=== PATIENT | female | born 1990 | race Caucasian/White ===

== ENCOUNTER 2016-03-07 05:37 | Inpatient (IN) | payer MEDICAID ==
[2016-03-01 12:00] LABS: ABSOLUTE EOSINOPHILS # (AUTO) 0.1 10^3/uL (0.0-0.6); ABSOLUTE LYMPHOCYTES (AUTO) 1.6 10^3/uL (0.5-4.7); ABSOLUTE MONOCYTES (AUTO) 0.6 10^3/uL (0.1-1.4); ABSOLUTE NEUT (AUTO) 7.7 10^3/uL (1.7-8.2); BASOPHILS % (AUTO) 0.4 % (0-2); EOSINOPHILS % (AUTO) 0.6 % (0-6); HEMATOCRIT 32.2 % (36.0-47.0); HEMOGLOBIN 10.4 g/dL (12.0-15.5); LYMPHOCYTES % (AUTO) 15.9 % (13-45); MEAN CORPUSCULAR HGB CONC 32.3 g/dL (32.0-36.0); MEAN CORPUSCULAR VOLUME 74 fl (80-97); MONOCYTES % (AUTO) 6.1 % (3-13); RED BLOOD COUNT 4.34 10^6/uL (3.72-5.28); RED CELL DISTRIBUTION WIDTH 16.1 % (11.5-14.0)
[2016-03-01 12:08] LABS: APPEARANCE,URINE SLIGHTLY-CLOUDY; BILIRUBIN,URINE NEGATIVE (NEGATIVE); GLUCOSE, URINE NEGATIVE (NEGATIVE); KETONES,URINE NEGATIVE (NEGATIVE); LEUKOCYTE ESTERASE,URINE SMALL (NEGATIVE); NITRITE,URINE NEGATIVE (NEGATIVE); PROTEIN,URINE NEGATIVE (NEGATIVE); URINE SPECIFIC GRAVITY 1.026; UROBILINOGEN,URINE NEGATIVE mg/dL (<2.0)
[2016-03-01 12:25] LABS: URINE BARBITURATES SCREEN NEGATIVE; URINE METHADONE SCREEN NEGATIVE; URINE PHENCYCLIDINE SCREEN NEGATIVE
[~2016-03-07 05:37] MED LIST: CEFAZOLIN SODIUM 1 GM in DEXTROSE 5%-WATER 50 ML IV PRN; LACTATED RINGERS 1000 ML IV PRN; LIDOCAINE 0.5% INJ-PF (5 MG/ML) 50 ML SDV SUBCUT PRN; RINGERS SOLUTION,LACTATED 1,000 ML IV PRN
[2016-03-07] MEDS ORDERED: CEFAZOLIN INJ 1 GM VIAL ONE (06:28)
[2016-03-07] MEDS ORDERED: FENTANYL CITRATE INJ/PF 100 MCG/2 ML AMPUL ONE (09:23)
[2016-03-07] MEDS ORDERED: METHYLERGONOVINE MALEATE INJ/PF 0.2 MG/1 ML AMPULE ONE (09:23)
[2016-03-07] MEDS ORDERED: OXYTOCIN/NORMAL SALINE 20 UNIT/1,000 ML RTUINJ ONE ×2 (09:23→11:08)
[2016-03-07] MEDS ORDERED: ACETAMINOPHEN 100 ML IV ONE (09:23)
[2016-03-07] MEDS ORDERED: MIDAZOLAM 2 MG/2 ML INJ ONE (09:23)
[2016-03-07] MEDS ORDERED: OXYTOCIN 10 UNIT/ML VIAL ONE (09:23)
[2016-03-07] MEDS ORDERED: KETAMINE HCL INJ 500 MG/10 ML VIAL ONE (09:58)
[2016-03-07] MEDS ORDERED: ONDANSETRON HCL INJ/PF 4 MG/2 ML SDV IV PRN (10:26)
[2016-03-07] MEDS ORDERED: PROMETHAZINE HCL INJ 25 MG/1 ML VIAL IV PRN ×2 (10:26)
[2016-03-07] MEDS ORDERED: OXYCODONE-ACETAMINOPHEN 5-325 MG TABLET PO PRN ×3 (10:26→13:27)
[2016-03-07] MEDS ORDERED: DIPHENHYDRAMINE HCL 50 MG/ML VIAL IV PRN (10:26)
[2016-03-07] MEDS ORDERED: MEPERIDINE HCL/PF INJ 25 MG/1 ML DISP.SYRIN IV PRN (10:26)
[2016-03-07] MEDS ORDERED: FENTANYL CITRATE INJ/PF 100 MCG/2 ML AMPUL IV PRN ×3 (10:26)
[2016-03-07] MEDS ORDERED: MORPHINE SULFATE 10 MG/ML INJ IV PRN (10:26)
--- NOTE | 2016-03-07 11:03 | OPERATIVE REPORT E ---
Operative Report NAME: NHUNG JAQUEZ : 1990 AGE: 26Y DATE OF SURGERY: 03/07/2016 ROOM: 225 PREOPERATIVE DIAGNOSES: 1. A 39-week intrauterine . 2. History of section x2 for repeat. POSTOPERATIVE DIAGNOSES: 1. A 39-week intrauterine . 2. History of section x2 for repeat. PROCEDURE: Repeat low transverse section. SURGEON: Mumtaz Viera D.O. CORPORATE STRATEGY ASSOCIATE: None. ANESTHESIA: Spine. COMPLICATIONS: None. ESTIMATED BLOOD LOSS: 600 mL. PATHOLOGY: None. FINDINGS: 1. Viable male at 10:11 a.m. on 03/07/2016. Apgars 8 at 1 and 9 at 5. Weight pending this dictation. 2. Normal appearing bilateral fallopian tubes and ovaries. PROCEDURE: The patient was taken to the operating room where she was spinal anesthesia was administered. Once this was done, she was placed in a dorsal supine position with a leftward tilt upon the operating room table. She was then prepped and draped in a normal sterile fashion. A scalpel was then used to make a Pfannenstiel skin incision. The skin incision was carried down through the subcutaneous tissues to the layer of the fascia. Fascia was incised midline. Fascial incision was then extended bilaterally using Bovie cautery. The superior fascial edge was grasped with Chin clamps, elevated, and the rectus muscle was dissected off sharply and bluntly. Attention was then turned to the inferior fascial edge, which was grasped with Chin clamps, elevated, and the rectus muscle was dissected off sharply and bluntly. Rectus muscles were then in the midline, peritoneum identified and entered bluntly with the surgeon's hands. A bladder blade was inserted. A scalpel was then used to make a low transverse hysterotomy incision. The infant was found to be in the cephalic position and delivered through this incision without difficulty and atraumatically. The nose and mouth were suctioned. The cord was clamped and cut and the infant was handed off to the waiting nurses. Cord blood was obtained. The placenta was then manually removed from the uterus. The uterus was exteriorized and cleared of all clots and debris. The hysterotomy incision was then reapproximated using 2 layers of 1-0 Vicryl in a running, locking fashion. Following closure of the second layer, excellent hemostasis was noted. The uterus was then returned to the abdomen. Again, the hysterotomy incision was reinspected and found to have excellent hemostasis. Rectus muscles were then reapproximated using 1-0 Vicryl interrupted sutures. The fascia was then closed using 1-0 Vicryl in a running, non-locking fashion. The subcutaneous space was made hemostatic using Bovie cautery. The skin was then closed with absorbable eleni, covered with an OpSite and then with a pressure dressing. At this point in time, the procedure was terminated. All sponge, lap, and needle counts were correct x2. The patient tolerated the procedure well. The patient was taken to the recovery room in stable condition. DICTATING PHYSICIAN: Mumtaz Viera DO [id number] PHY#: [id number] ID: [id number] JOB#: [id number] ACCT: [id number] cc:Mumtaz Viera D.O. >
[2016-03-07] MEDS ORDERED: HYDROMORPHONE HCL INJ/PF 2 MG/ML AMPULE IV PRN (13:20)
[2016-03-07] MEDS ORDERED: SIMETHICONE 80 MG TAB.CHEW PO PRN (13:28)
[2016-03-07] MEDS ORDERED: ACETAMINOPHEN 325 MG TABLET PO PRN (13:28)
[2016-03-07] MEDS ORDERED: MEASLES,MUMPS&RUBELLA VACC/PF 0.5 ML VIAL SUBCUT PRN (13:29)
[2016-03-07] MEDS ORDERED: TETANUS/DIPHTHERIA TOX-ADULT 0.5 ML SYR (>=7YO) IM PRN (13:30)
[2016-03-07] MEDS ORDERED: KETOROLAC TROMETHAMINE INJ/PF 30 MG/1 ML SDV IV SCH (13:30)
[2016-03-07] MEDS: KETOROLAC TROMETHAMINE INJ/PF 30 MG/1 ML SDV IV SCH (14:15)
[2016-03-07] MEDS ORDERED: ONDANSETRON HCL INJ/PF 4 MG/2 ML SDV ONE (14:22)
[2016-03-07] MEDS ORDERED: DIPH/PERTUSS(ACELL)/TETANUS VAC/PF 0.5 ML SYR (>=10YO) IM PRN (15:28)
[2016-03-07] MEDS ORDERED: KETOROLAC TROMETHAMINE INJ/PF 30 MG/1 ML SDV ONE (16:34)
[2016-03-07] MEDS ORDERED: KETOROLAC TROMETHAMINE INJ/PF 30 MG/1 ML SDV IV ONE (16:35)
[2016-03-07] MEDS: DOCUSATE SODIUM 100 MG CAPSULE PO SCH (17:33)
[2016-03-07] MEDS: OXYCODONE-ACETAMINOPHEN 5-325 MG TABLET PO PRN (19:56)
[2016-03-08] MEDS: KETOROLAC TROMETHAMINE INJ/PF 30 MG/1 ML SDV IV SCH ×2 (00:11→07:30)
[2016-03-08] MEDS: OXYCODONE-ACETAMINOPHEN 5-325 MG TABLET PO PRN ×5 (02:38→21:52)
[2016-03-08 08:06] LABS: HEMATOCRIT 28.8 % (36.0-47.0); HGB HCT DIFFERENCE -1.8; MEAN CORPUSCULAR HEMOGLOBIN 23.4 pg (27.0-33.4); MEAN CORPUSCULAR HGB CONC 31.4 g/dL (32.0-36.0); MEAN CORPUSCULAR VOLUME 75 fl (80-97); RED BLOOD COUNT 3.87 10^6/uL (3.72-5.28); RED CELL DISTRIBUTION WIDTH 16.4 % (11.5-14.0); WHITE BLOOD COUNT 10.7 10^3/uL (4.0-10.5)
[2016-03-08] MEDS: DOCUSATE SODIUM 100 MG CAPSULE PO SCH ×2 (09:51→17:27)
[2016-03-08] MEDS: PRENATAL VITAMIN W-O CA NO5/FE FUMARATE/FA CAPSULE PO SCH (09:52)
--- NOTE | 2016-03-08 16:03 | PDOC PROGRESS REPORT ---
Subjective-OB Subjective: Post Delivery Day:1 26 year old s/p repeat . , ambulating and voiding without difficulty. Denies any needs at this time. Physical Exam (OB) Vital Signs: Temp Pulse Resp BP Pulse Ox 97.7 F 51 L 19 115/64 97 03/08/16 09:21 03/08/16 09:21 03/08/16 09:21 03/08/16 09:21 03/08/16 09:21 Intake & Output 03/07/16 03/08/16 03/09/16 06:59 06:59 06:59 Intake Total 1815 Output Total 2550 Balance -735 Weight 106.594 kg - General General Appearance: Appears well In distress: None - Dressing Removed: No Incision: Dressing Closure Type: metapor - Lochia Lochia Amount: Scant < 10 ml Lochia Color: Rubra/Red - Abdomen Description: Soft, Round Hernia Present: No Fundal Description: Firm, Midline Fundal Height: u/u - u/2 - Respiratory Respiratory Status: No respiratory distress - Extremities Upper extremity: Normal inspection Lower extremities: Normal inspection - Neurological Orientation: AAOx4 - Psychological Associated symptoms: Normal affect - FOB and two other children in room. Bonding well with baby., Normal mood - bonding well with baby Objective-Diagnostic Laboratory: 03/08/16 07:34 03/08/16 07:34 WBC 10.7 H RBC 3.87 Hgb 9.0 L Hct 28.8 L MCV 75 L MCH 23.4 L MCHC 31.4 L RDW 16.4 H Plt Count 369 Assessment and Plan(PN) - Assessment and Plan (1) Status post repeat low transverse section Is this a current diagnosis for this admission?: YesPlan: continue stay - Time Spent with Patient Time with patient: 15-25 minutes Medications reviewed and adjusted accordingly: Yes - Disposition Anticipated Discharge: Home Within: within 24 hours
[2016-03-08] MEDS: IBUPROFEN 800 MG TABLET PO PRN (17:30)
[2016-03-09] MEDS: OXYCODONE-ACETAMINOPHEN 5-325 MG TABLET PO PRN ×2 (02:31→13:08)
[2016-03-09] MEDS: IBUPROFEN 800 MG TABLET PO PRN ×2 (05:06→15:56)
[2016-03-09 08:10] VITALS: BP 106/66
[2016-03-09] MEDS: PRENATAL VITAMIN W-O CA NO5/FE FUMARATE/FA CAPSULE PO SCH (10:30)
[2016-03-09] MEDS: DOCUSATE SODIUM 100 MG CAPSULE PO SCH (10:30)
--- NOTE | 2016-03-09 11:40 | PDOC DISCHARGE SUMMARY ---
Final Diagnosis Discharge Date: 03/09/16 - Final Diagnosis (1) Status post repeat low transverse section Is this a current diagnosis for this admission?: Yes Discharge Data - Discharge Medication Home Medications: Pnv95/Ferrous Fumarate/FA [ Caplet] 1 tab PO DAILY 01/22/16 Ferrous Sulfate [Feosol] 1 ea PO DAILY 03/07/16 Reason(s) for Admission: Ceasarean Section-Repeat Procedures: None Intrapartum Procedure(s): : Low Cervical, Transverse - Diagnosis Test Laboratory: Temp Pulse Resp BP Pulse Ox 98.1 F 79 18 107/66 97 03/09/16 08:05 03/09/16 08:05 03/09/16 08:05 03/09/16 08:05 03/09/16 08:05 03/01/16 03/01/16 03/08/16 10:55 11:24 07:34 RBC 4.34 3.87 Hgb 10.4 L 9.0 L Hct 32.2 L 28.8 L Urine Opiates Screen NEGATIVE - Discharge information/Instructions Discharge Activity: Balance Activity w/Rest, No Driving, No Lifting Over 10 Pounds, No Lifting/Push/Pulling, Pelvic Rest, No tub bath Discharge Diet: Regular Disposition: HOME, SELF-CARE Follow up with: [facility] in: 5, Days
== END 2016-03-09 17:30 | disposition home or self-care (01) | DRG 766 ==
LOC: 2S 05:37
PROVIDERS: ADMIT Obstetrics & Gynecology; ATTEND Obstetrics & Gynecology
PROC: 10D00Z1 Extraction of Products of Conception, Low, Open Approach (ICD-10-PCS; principal; 2016-03-07 09:00)
DX: O34.211 Maternal care for low transverse scar from previous cesarean delivery (principal); N85.8 Other specified noninflammatory disorders of uterus; O75.82 Onset (spontaneous) of labor after 37 completed weeks of gestation but before 39 completed weeks gestation, with delivery by (planned) cesarean section; Z3A.39 39 weeks gestation of pregnancy; Z37.0 Single live birth; O09.33 Supervision of pregnancy with insufficient antenatal care, third trimester
CPT/HCPCS: 1961; 36415; 59025; 80307; 81001; 85025; 85027; 86850; 86900; 86901; 94799; J0131; J0690; J1170; J1885; J2210; J2250; J2405; J2590; J3010; J3490; J7120

== ENCOUNTER 2016-03-11 15:25 | Emergency (ER) | payer MEDICAID ==
--- NOTE | 2016-03-11 15:34 | ER Document Report ---
ED Medical Screen (RME) - General Stated Complaint: POST SURGICAL COMPLICATION Time seen by provider: 15:34 Mode of Arrival: Ambulatory Information source: Patient Notes: 26-year-old female with a C back on 03-07-16 at 39 weeks. Last night. The incisional pain is unusual post for her. She also is complaining of brown discharge and bleeding from the incision. No fever. TRAVEL OUTSIDE OF THE [place] IN LAST 30 DAYS: No - Related Data Allergies/Adverse Reactions: amoxicillin Allergy (Intermediate, Verified 12/06/15 12:29) Generalized rash clavulanic acid [From Augmentin] Allergy (Intermediate, Verified 12/06/15 12:29) Generalized rash nitrofurantoin [From Macrobid] Allergy (Intermediate, Verified 12/06/15 12:29) Generalized rash Past Medical History - Past Medical History Cardiac Medical History: Denies: Hx Hypertension, Hx Pulmonary Embolism, Hx Heart Murmur Pulmonary Medical History: Reports: Hx Asthma Denies: Hx Sleep Apnea, Hx Tuberculosis Neurological Medical History: Denies: Hx Cerebrovascular Accident, Hx Seizures Endocrine Medical History: Denies: Hx Hyperthyroidism, Hx Hypothyroidism Renal/ Medical History: Reports: Hx Ovarian Cysts. Denies: Hx Kidney Stones, Hx Pelvic Inflammatory Disease Malignancy Medical History: Denies: Hx Breast Cancer, Hx Cervical Cancer, Hx Ovarian Cancer GI Medical History: Reports: Hx Gastroesophageal Reflux Disease - during . Denies: Hx Hiatal Hernia, Hx Ulcer Musculoskeltal Medical History: Denies Hx Fibromyalgia Psychiatric Medical History: Denies: Hx Bipolar Disorder, Hx Depression, Hx Post Traumatic Stress Disorder , Hx Schizophrenia Traumatic Medical History: Denies: Hx Fractures Infectious Medical History: Denies: Hx HIV Physical Exam - Vital signs Vitals: Temp Pulse Resp BP Pulse Ox 98.0 F 87 20 121/77 97 03/11/16 15:31 03/11/16 15:31 03/11/16 15:31 03/11/16 15:31 03/11/16 15:31 Course - Vital Signs Vital signs: Temp Pulse Resp BP Pulse Ox 98.0 F 87 20 121/77 97 03/11/16 15:31 03/11/16 15:31 03/11/16 15:31 03/11/16 15:31 03/11/16 15:31
[2016-03-11 16:27] LABS: ABSOLUTE BASOPHILS # (AUTO) 0.1 10^3/uL (0.0-0.2); ABSOLUTE EOSINOPHILS # (AUTO) 0.3 10^3/uL (0.0-0.6); ABSOLUTE LYMPHOCYTES (AUTO) 1.8 10^3/uL (0.5-4.7); ABSOLUTE MONOCYTES (AUTO) 0.6 10^3/uL (0.1-1.4); BASOPHILS % (AUTO) 0.6 % (0-2); EOSINOPHILS % (AUTO) 2.9 % (0-6); HEMATOCRIT 28.4 % (36.0-47.0); HEMOGLOBIN 9.2 g/dL (12.0-15.5); HGB HCT DIFFERENCE -0.8; MEAN CORPUSCULAR HEMOGLOBIN 23.6 pg (27.0-33.4); MEAN CORPUSCULAR HGB CONC 32.3 g/dL (32.0-36.0); MEAN CORPUSCULAR VOLUME 73 fl (80-97); MONOCYTES % (AUTO) 7.4 % (3-13); RED BLOOD COUNT 3.88 10^6/uL (3.72-5.28); RED CELL DISTRIBUTION WIDTH 16.3 % (11.5-14.0); SEGMENTED NEUTROPHILS % (AUTO) 68.1 % (42-78); WHITE BLOOD COUNT 8.8 10^3/uL (4.0-10.5)
--- NOTE | 2016-03-11 16:43 | ER Document Report ---
ED Wound - General Chief Complaint: Wound Recheck Stated Complaint: POST SURGICAL COMPLICATION Mode of Arrival: Ambulatory Notes: Patient is a 26-year-old female who is postop day 3 from an elective C- section. She comes emergency department today with concern for bleeding at her site as well as pain. Patient states that she has had 2 other C- sections prior to this and has never had such severe abdominal pain. She states that it is underneath her incision. Painful to deep palpation. There is difficult for her to lie flat. Described as a burning constant pain. She has been taking Motrin 800 mg 3 times a day and Percocet 1- 2 tablets every 4 hours when necessary. Patient states that she has 2 other children at home under the age of 2 and she hasn't been able to get a lot of sleep. Otherwise is a healthy female TRAVEL OUTSIDE OF THE [place] IN LAST 30 DAYS: No - Related Data Allergies/Adverse Reactions: amoxicillin Allergy (Intermediate, Verified 03/11/16 15:39) Generalized rash clavulanic acid [From Augmentin] Allergy (Intermediate, Verified 03/11/16 15:39) Generalized rash nitrofurantoin [From Macrobid] Allergy (Intermediate, Verified 03/11/16 15:39) Generalized rash Past Medical History - General Information source: Patient - Social History Smoking Status: Unknown if Ever Smoked Chew tobacco use (# tins/day): No Frequency of alcohol use: None Drug Abuse: None Family History: Reviewed & Not Pertinent Patient has suicidal ideation: No Patient has homicidal ideation: No - Past Medical History Cardiac Medical History: Denies: Hx Hypertension, Hx Pulmonary Embolism, Hx Heart Murmur Pulmonary Medical History: Reports: Hx Asthma Denies: Hx Sleep Apnea, Hx Tuberculosis Neurological Medical History: Denies: Hx Cerebrovascular Accident, Hx Seizures Endocrine Medical History: Denies: Hx Hyperthyroidism, Hx Hypothyroidism Renal/ Medical History: Reports: Hx Ovarian Cysts. Denies: Hx Kidney Stones, Hx Peritoneal Dialysis, Hx Pelvic Inflammatory Disease Malignancy Medical History: Denies: Hx Breast Cancer, Hx Cervical Cancer, Hx Ovarian Cancer GI Medical History: Reports: Hx Gastroesophageal Reflux Disease - during . Denies: Hx Hiatal Hernia, Hx Ulcer Musculoskeltal Medical History: Denies Hx Fibromyalgia Psychiatric Medical History: Denies: Hx Bipolar Disorder, Hx Depression, Hx Post Traumatic Stress Disorder , Hx Schizophrenia Traumatic Medical History: Denies: Hx Fractures Infectious Medical History: Denies: Hx HIV Review of Systems - Review of Systems Constitutional: No symptoms reported EENT: No symptoms reported Cardiovascular: No symptoms reported Respiratory: No symptoms reported Gastrointestinal: See HPI Genitourinary: No symptoms reported Female Genitourinary: No symptoms reported Musculoskeletal: No symptoms reported Skin: See HPI Neurological/Psychological: No symptoms reported Physical Exam - Vital signs Vitals: Temp Pulse Resp BP Pulse Ox 98.0 F 87 20 121/77 97 03/11/16 15:31 03/11/16 15:31 03/11/16 15:31 03/11/16 15:31 03/11/16 15:31 - Notes Notes: PHYSICAL EXAM GENERAL: Alert, interacts well. LUNGS: Clear to auscultation bilaterally, no wheezes, rales, or rhonchi. No respiratory distress. HEART: Regular rate and rhythm. No murmurs, gallops, or rubs. ABDOMEN: Soft, mildly distended, tender to superficial palpation over her c section incison. site is dry and intact under honeycomb dressing and op site. No evidence of wound dehiscence, inflammation. Evidence of dried blood on the dressing but no acute bleeding . No guarding, rebound, or rigidity.. Bowel sounds present in all 4 quadrants. EXTREMITIES: Moves all 4 extremities spontaneously. No edema, radial and dorsalis pedis pulses 2/4 bilaterally. No cyanosis. NEUROLOGICAL: Alert and oriented x3. Normal speech. PSYCH: Normal affect, normal mood. SKIN: Warm, dry, normal turgor. No rashes or lesions noted. Course - Re-evaluation Re-evalutation: 03/11/16 16:46 Patient is a 26 old female who is hemodynamically stable, no acute distress and afebrile. Surgical site shows signs of healing well without any evidence of dehiscence or infection. Counseled patient on expectations after elective abdominal surgery. Encouraged patient to follow discharge instructions for abdominal precautions and follow-up with her [facility] ([facility]) on March 15. - Vital Signs Vital signs: Temp Pulse Resp BP Pulse Ox 98.0 F 87 20 121/77 97 03/11/16 15:31 03/11/16 15:31 03/11/16 15:31 03/11/16 15:31 03/11/16 15:31 - Laboratory Result Diagrams: 03/11/16 15:55 03/11/16 15:55 Laboratory results interpreted by me: 03/11/16 03/11/16 15:55 15:55 Hgb 9.2 L Hct 28.4 L MCV 73 L MCH 23.6 L RDW 16.3 H Creatinine 0.49 L Total Protein 5.9 L Albumin 3.2 L Discharge - Discharge Clinical Impression: Post-op pain Condition: Good Disposition: HOME, SELF-CARE Additional Instructions: Activity: Slowly increase your activity. Be sure to get up and walk every few hours or so to prevent blood clot formation. Do not lift heavy items greater than 10 pounds or participate in strenuous activity for at least 4 weeks. Convalescent leave for 21 days starting today followed by light duty for 21 days. A light duty chit will be given to you at your follow up appointment. Wound Care: Always wash your hands before and after touching near your incision site. Do not soak in a bathtub, go swimming or submerge in water for at least 2 weeks. You may take a shower after the second postoperative day. A small amount of drainage from the incision is normal. If the dressing is soaked with blood, call the General Surgery clinic. A small amount of drainage from the incision is normal. If the dressing is soaked with blood, call your surgeon. If you have Steri-strips in place, they will fall off in 7 to 10 days. If you have a glue-like covering over the incision, allow the glue to flake off on its own. If you have a dressing covering your incision, you may remove your dressing after two days and leave it open to the air. If you have packing inside your wound. Remove the packing in 24 hours and change the dressing as instructed by your surgeon daily. Avoid wearing tight or rough clothing. It may rub against your incisions and make it harder for them to heal. Protect the new skin, especially from the sun. The sun can burn and cause darker scarring. Your scar will heal in about 4 to 6 weeks and will become softer and continue to fade over the next year. Bowel Movements: Avoid straining with bowel movements by increasing the fiber in your diet with high- fiber foods or [id number] medicines (like Metamucil and Fibercon). Be sure you are drinking 8 to 10 glasses of water each day. Be sure to also take the Colace as prescribed to prevent constipation from taking narcotics. Pain: The amount of pain is different for each person. The new medicine you will need after your operation is for pain control. Take Motrin for mild pain and Percocet for moderate to severe pain as needed. Contact your surgeon if you have: A fever of more than 101F (38.3C) Repeated vomiting Swelling, redness, bleeding, or foul- smelling drainage from your wound site Strong or continuous abdominal pain or swelling of your abdomen No bowel movement by 3 days after the operation Prescriptions: Tramadol HCl [Ultram] 50 mg PO Q6HP PRN #14 tablet PRN Reason: Meloxicam [Mobic 15 mg Tablet] 15 mg PO DAILY #30 tablet
[2016-03-11 16:46] LABS: ALANINE AMINOTRANSFERASE 47 U/L (9-52); ALBUMIN 3.2 g/dL (3.5-5.0); ALKALINE PHOSPHATASE 96 U/L (38-126); ASPARTATE AMINO TRANSFERASE 27 U/L (14-36); BILIRUBIN,TOTAL 0.3 mg/dL (0.2-1.3); BLOOD UREA NITROGEN 18 mg/dL (7-20); CALCIUM 9.4 mg/dL (8.4-10.2); CARBON DIOXIDE 29 mmol/L (22-30); CHLORIDE 101 mmol/L (98-107); CREATININE RESULT 0.49 mg/dL (0.52-1.25); GLUCOSE 84 mg/dL (75-110); POTASSIUM 4.4 mmol/L (3.6-5.0); TOTAL PROTEIN 5.9 g/dL (6.3-8.2)
[2016-03-11 16:47] LABS: ANION GAP 9 (5-19); SODIUM 139.1 mmol/L (137-145)
[2016-03-11 17:26] VITALS: BP 124/75
== END 2016-03-11 17:02 | disposition home or self-care (01) ==
LOC: ER 15:25
DX: O99.355 Diseases of the nervous system complicating the puerperium (principal); G89.18 Other acute postprocedural pain; R10.9 Unspecified abdominal pain; Z88.0 Allergy status to penicillin; Z88.1 Allergy status to other antibiotic agents
CPT/HCPCS: 36415; 80053; 85025; 99283